=== PATIENT | female | born 1945 | race Caucasian/White ===

== ENCOUNTER → 2018-10-20 | Outpatient (CLI) | payer MEDICARE, OTHER ==
[~2018-10-20] MED LIST: Z.0.NEXIUM40 MG PO
--- NOTE | 2018-10-20 17:16 | Diagnostic Imaging Report ---
Exam: Right elbow Series.-3 views History: Pain Comparison: None Findings: Three radiographic views of the right elbow were obtained. No acute fracture or dislocation. The soft tissues appear unremarkable. No substantial joint effusion. Impression: No acute osseous injury of the right elbow. Signed by: Chloe Blankenship MD on 10/20/2018 5:13 PM
--- NOTE | 2018-10-20 17:19 | Diagnostic Imaging Report ---
Exam: Right Hand Series.-3 views History: Pain Comparison: None Findings: Three radiographic views of the right hand were obtained. No acute fracture or dislocation. The soft tissues appear unremarkable. There are scattered degenerative changes, most notably at the metacarpal phalangeal joint of the thumb where there is joint space narrowing, small osteophyte formation, and mild subluxation. Impression: No acute osseous injury. Scattered degenerative changes, most notably at the first MCP joint. Signed by: Chloe Blankenship MD on 10/20/2018 5:16 PM
== END ==
LOC: RAD 15:45
PROVIDERS: ATTEND Internal Medicine
DX: M25.511 Pain in right shoulder (principal); M25.521 Pain in right elbow; M79.641 Pain in right hand; Z91.81 History of falling

== ENCOUNTER 2018-12-23 11:00 | Outpatient (RCR) | payer MEDICARE, OTHER | END 2019-01-03 | LOC: OT 11:00 | PROVIDERS: ATTEND Specialist | DX: S42.392A Other fracture of shaft of left humerus, initial encounter for closed fracture (principal) | CPT/HCPCS: 97139 ==

== ENCOUNTER → 2020-02-21 | Outpatient (CLI) | payer MEDICARE, OTHER ==
[~2020-02-21] MED LIST changes: +CEFUROXIME500 MG PO
== END ==
LOC: RAD 13:54
PROVIDERS: ATTEND Internal Medicine
DX: J41.0 Simple chronic bronchitis (principal)
CPT/HCPCS: 71046

== ENCOUNTER 2020-02-25 01:11 | Emergency (ER) | payer MEDICARE, OTHER ==
[~2020-02-25] VITALS: Ht 157.5 cm; Wt 71.7 kg
[~2020-02-25 01:11] MED LIST changes: -CEFUROXIME500 MG PO
[2020-02-25] MEDS ORDERED: ASPIRIN 81 MG CHEW TAB PO ONE (01:15)
--- NOTE | 2020-02-25 01:23 | Emergency Department Note ---
History of Present Illnes History of Present Illness History of Present Illness This is a 75 year old female with CP of 3 days duration. Recent loss of sense of smell yesterday. (+) fevers . Historian: Patient, Family Member Arrival Mode: Car Patient Access Specialist Required: No Radiation: Reports non-radiation Severity: moderate Onset quality: sudden Duration (how long): hour(s) Timing of current episode: constant Progression: worsening Chronicity: new Relieving factors: none Exacerbating factors: none Associated symptoms: Reports chest pain, Reports shortness of breath Treatments prior to arrival: none Past Medical/Family History Physician Review I have reviewed the patient's past medical and family history. Any updates have been documented here. Past Medical History Recent Fever: Yes Clinical Suspicion of Infectio: Yes New/Unexplained Change in Ment: No Past Medical History: None Past Surgical History: None Social History Smoking Cessation: Never Smoker Alcohol Use: None Any Illegal Drug Use: No Review of Systems Review of Systems Constitutional: Reports no symptoms EENTM: Reports no symptoms Cardiovascular: Reports chest pain Respiratory: Reports dyspnea Gastrointestinal: Reports no symptoms Genitourinary: Reports no symptoms Musculoskeletal: Reports no symptoms Integumentary: Reports no symptoms Neurological: Reports no symptoms Psychological: Reports no symptoms Endocrine: Reports no symptoms Hematological/Lymphatic: Reports no symptoms Physical Exam Related Data Allergies: Coded Allergies: Penicillins (Verified Allergy, Unknown, 02/21/20) Sulfa (Sulfonamide Antibiotics) (Verified Allergy, Unknown, 02/21/20) codeine (Verified Allergy, Unknown, 02/21/20) Triage Vital Signs Vital Signs Date Time Temp Pulse Resp B/P (MAP) Pulse Ox O2 Delivery O2 Flow Rate FiO2 02/25/20 01:12 98.0 70 20 148/76 100 Room Air Vital signs reviewed: Yes Physical Exam CONSTITUTIONAL Constitutional: Present well-developed, Present well-nourished HENT HENT: Present normocephalic, Present atraumatic, Present oropharynx clear/moist, Present nose normal HENT L/R: Present left ext ear normal, Present right ext ear normal EYES Eyes: Reports PERRL, Reports conjunctivae normal NECK Neck: Present ROM normal PULMONARY Pulmonary: Present effort normal, Present breath sounds normal CARDIOVASCULAR Cardiovascular: Present regular rhythm, Present heart sounds normal, Present capillary refill normal, Present normal rate GASTROINTESTINAL Abdominal: Present soft, Present nontender, Present bowel sounds normal GENITOURINARY Genitourinary: Present exam deferred SKIN Skin: Present warm, Present dry MUSCULOSKELETAL Musculoskeletal: Present ROM normal NEUROLOGICAL Neurological: Present alert, Present oriented x 3, Present no gross motor or sensory deficits PSYCHOLOGICAL Psychological: Present mood/affect normal, Present judgement normal Results Laboratory Lab results reviewed: Yes Laboratory comments Laboratory Tests Test 02/25/20 01:22 02/25/20 01:15 Coronavirus (PCR) Detected (NOTDETECTED) White Blood Count 4.85 x10e3/uL (4.8-10.8) Red Blood Count 4.50 x10e6/uL (3.6-5.1) Hemoglobin 13.4 g/dL (12.0-16.0) Hematocrit 40.8 % (34.2-44.1) Mean Corpuscular Volume 90.7 fL (81-99) Mean Corpuscular Hemoglobin 29.8 pg (28-32) Mean Corpuscular Hemoglobin Concent 32.8 g/dL (31-35) Red Cell Distribution Width 13.1 % (11.7-14.4) Platelet Count 263 x10e3/uL (140-360) Neutrophils (%) (Auto) 39.1 % (38.7-80.0) Lymphocytes (%) (Auto) 48.2 % (18.0-39.1) Monocytes (%) (Auto) 11.1 % (4.4-11.3) Eosinophils (%) (Auto) 0.6 % (0.0-6.0) Basophils (%) (Auto) 0.4 % (0.0-1.0) Neutrophils # (Auto) 1.9 (2.1-6.9) Lymphocytes # (Auto) 2.3 (1.0-3.2) Monocytes # (Auto) 0.5 (0.2-0.8) Eosinophils # (Auto) 0.0 (0.0-0.4) Basophils # (Auto) 0.0 (0.0-0.1) Absolute Immature Granulocyte (auto 0.03 x10e3/uL (0-0.1) D-Dimer Quantitative (PE/DVT) 2.03 ug/mLFEU (0.00-0.45) Sodium Level 139 mmol/L (136-145) Potassium Level 4.1 mmol/L (3.5-5.1) Chloride Level 102 mmol/L (98-107) Carbon Dioxide Level 25 mmol/L (22-29) Anion Gap 16.1 mmol/L (8-16) Blood Urea Nitrogen 13 mg/dL (7-26) Creatinine 0.75 mg/dL (0.57-1.11) Estimat Glomerular Filtration Rate > 60 ML/MIN (60-) BUN/Creatinine Ratio 17 (6-25) Glucose Level 96 mg/dL (74-118) Calcium Level 8.9 mg/dL (8.4-10.2) Total Bilirubin 0.2 mg/dL (0.2-1.2) Aspartate Amino Transf (AST/SGOT) 21 IU/L (5-34) Alanine Aminotransferase (ALT/SGPT) 15 IU/L (0-55) Alkaline Phosphatase 75 IU/L (40-150) Creatine Kinase 66 IU/L (29-168) Creatine Kinase MB 1.70 ng/mL (0-5.0) Troponin I < 0.001 ng/mL (0-0.300) B-Type Natriuretic Peptide 23.3 pg/mL (0-100) Total Protein 6.7 g/dL (6.5-8.1) Albumin 4.0 g/dL (3.5-5.0) Globulin 2.7 g/dL (2.3-3.5) Albumin/Globulin Ratio 1.5 (0.8-2.0) Imaging Imaging results reviewed: Yes Impressions [place] [address] Patient Name: PONCHO THORNTON MR #: [id number] : 1945 Age/Sex: 75/F Req #: [id number] Adm Physician: Ordered by: GLENYS CAMPBELL DO Report #: [id number] Location: ER Room/Bed: Procedure: [id number] CT/CT CHEST W Exam Date: 02/25/20 Exam Time: 020 REPORT STATUS: Signed EXAM: CT PE Chest, Abdomen and Pelvis WITH contrast INDICATION: ^Y ^CP ^[id number] ^0207 COMPARISON: None. TECHNIQUE: Chest, abdomen and pelvis were scanned utilizing a multidetector helical scanner from the lung apex to the pubic symphysis after administration of IV contrast. Coronal and sagittal reformations were obtained. CT chest protocol. Portal venous phase abdomen pelvis. IV CONTRAST: 100 mL of Isovue 370 ORAL CONTRAST: None COMPLICATIONS: None FINDINGS: LUNGS AND AIRWAYS: No pulmonary artery filling defects. Patchy consolidative opacities in the lower lobes. Diffuse groundglass with areas of mosaic attenuation suggestive of air trapping. A lobular septal thickening. No pleural effusion. PLEURA: The pleural spaces are clear. HEART AND MEDIASTINUM: The thyroid gland is normal. No mediastinal, hilar or axillary lymphadenopathy. The heart is normal in size. There is no pericardial effusion. HEPATOBILIARY: Noncirrhotic liver morphology. 1.0 cm simple cyst in the right hepatic lobe. No biliary ductal dilation. GALLBLADDER: There are cholecystectomy clips. SPLEEN: No splenomegaly. PANCREAS: No focal masses or ductal dilatation. ADRENALS: No adrenal nodules KIDNEYS/URETERS: Kidneys enhance symmetrically. Asymmetrically distended right renal pelvis and prominent right ureter without adjacent inflammatory changes. No ureteral calculi identified, but evaluation at the right UVJ is limited due to streak artifact from total right hip arthroplasty. GI TRACT: No abnormal distention, wall thickening, or evidence of bowel obstruction. Appendix is normal. PELVIC ORGANS/BLADDER: Unremarkable. LYMPH NODES: No lymphadenopathy. VESSELS: Unremarkable. PERITONEUM / RETROPERITONEUM: No free air or fluid. BONES: Total right hip arthroplasty.. SOFT TISSUES: Unremarkable. IMPRESSION: 1. No pulmonary emboli. 2. Patchy consolidative opacities in the lower lobes. Diffuse groundglass and interlobular septal thickening with areas of mosaic attenuation suggestive of air trapping. Findings are concerning for an acute infectious/inflammatory process including multifocal atypical/viral pneumonia. Findings are indeterminate for Covid 19. Recommend follow-up chest CT in 3 months. 3. Asymmetric distention of the right renal pelvis and ureter without davis hydronephrosis or associated inflammatory changes. No urinary tract calculi identified. Metallic artifact from the total right hip arthroplasty limits evaluation of the distal ureter at the right UVJ. Recommend comparisons with outside imaging to establish stability. Otherwise consider nonemergent MR urogram with metal reduction protocol to exclude underlying ureteral lesion. 4. Otherwise, no acute abdominopelvic process. Signed by: Pato James MD on 02/25/2020 3:28 AM Dictated By: PATO JAMES MD 7 Transcribed By: SARAH on 02/25/20327 COPY TO: GLENYS CAMPBELL DO~ [place] [address] Patient Name: PONCHO THORNTON MR #: [id number] : 1945 Age/Sex: 75/F Req #: [id number] Adm Physician: Ordered by: GLENYS CAMPBELL DO Report #: [id number] Location: ER Room/Bed: ___ Procedure: [id number] CT/CT ABDOMEN/PELVIS W Exam Date: 02/25/20 Exam Time: 206 REPORT STATUS: Signed EXAM: CT PE Chest, Abdomen and Pelvis WITH contrast INDICATION: ^Y ^CP ^[id number] ^0207 COMPARISON: None. TECHNIQUE: Chest, abdomen and pelvis were scanned utilizing a multidetector helical scanner from the lung apex to the pubic symphysis after administration of IV contrast. Coronal and sagittal reformations were obtained. CT chest protocol. Portal venous phase abdomen pelvis. IV CONTRAST: 100 mL of Isovue 370 ORAL CONTRAST: None COMPLICATIONS: None FINDINGS: LUNGS AND AIRWAYS: No pulmonary artery filling defects. Patchy consolidative opacities in the lower lobes. Diffuse groundglass with areas of mosaic attenuation suggestive of air trapping. A lobular septal thickening. No pleural effusion. PLEURA: The pleural spaces are clear. HEART AND MEDIASTINUM: The thyroid gland is normal. No mediastinal, hilar or axillary lymphadenopathy. The heart is normal in size. There is no pericardial effusion. HEPATOBILIARY: Noncirrhotic liver morphology. 1.0 cm simple cyst in the right hepatic lobe. No biliary ductal dilation. GALLBLADDER: There are cholecystectomy clips. SPLEEN: No splenomegaly. PANCREAS: No focal masses or ductal dilatation. ADRENALS: No adrenal nodules KIDNEYS/URETERS: Kidneys enhance symmetrically. Asymmetrically distended right renal pelvis and prominent right ureter without adjacent inflammatory changes. No ureteral calculi identified, but evaluation at the right UVJ is limited due to streak artifact from total right hip arthroplasty. GI TRACT: No abnormal distention, wall thickening, or evidence of bowel obstruction. Appendix is normal. PELVIC ORGANS/BLADDER: Unremarkable. LYMPH NODES: No lymphadenopathy. VESSELS: Unremarkable. PERITONEUM / RETROPERITONEUM: No free air or fluid. BONES: Total right hip arthroplasty.. SOFT TISSUES: Unremarkable. IMPRESSION: 1. No pulmonary emboli. 2. Patchy consolidative opacities in the lower lobes. Diffuse groundglass and interlobular septal thickening with areas of mosaic attenuation suggestive of air trapping. Findings are concerning for an acute infectious/inflammatory process including multifocal atypical/viral pneumonia. Findings are indeterminate for Covid 19. Recommend follow-up chest CT in 3 months. 3. Asymmetric distention of the right renal pelvis and ureter without davis hydronephrosis or associated inflammatory changes. No urinary tract calculi identified. Metallic artifact from the total right hip arthroplasty limits evaluation of the distal ureter at the right UVJ. Recommend comparisons with outside imaging to establish stability. Otherwise consider nonemergent MR urogram with metal reduction protocol to exclude underlying ureteral lesion. 4. Otherwise, no acute abdominopelvic process. Signed by: Pato James MD on 02/25/2020 3:28 AM Dictated By: PATO JAMES MD 7 Transcribed By: SARAH on 02/25/20327 COPY TO: GLENYS CAMPBELL DO~ Procedures 12 Lead ECG Interpretation ECG Interpretation : ECG: ECG 1 Patient Access Specialist: Interpreted by ED physician Date: Feb 25, 2020 Time: 01:17 Prior ECG tracings: reviewed Rhythm: sinus rhythm Rate: normal BPM: 72 QRS axis: normal ST segments normal: Yes T waves normal: Yes Clinical Impression: normal ECG Assessment & Plan Medical Decision Making MDM Diff Dx : COVID-19 URI, ACS, PE, PTX, PNA Assessment & Plan Final Impression: (1) Upper respiratory tract infection due to COVID-19 virus (2) Chest pain Depart Disposition: TRANS TO OTHER [facility] Home Meds Reported Medications Cefuroxime Axetil (CEFUROXIME) 500 Mg Tablet, 500 MG PO BID 02/25/20 Esomeprazole Mag Trihydrate (Nexium) 40 Mg Capsule.dr, 40 MG PO DAILY 09/03/10 Medications in the ED Aspirin 81 mg PRN ONCE PO ; Start 02/25/20 at 01:15; Stop 02/25/20 at 01:16; Status GLENYS KENDALL DO Feb 25, 2020 01:23
[2020-02-25 01:29] LABS: BASOPHILS % 0.4 % (0.0-1.0); EOSINOPHILS % 0.6 % (0.0-6.0); HEMATOCRIT 40.8 % (34.2-44.1); HEMOGLOBIN 13.4 g/dL (12.0-16.0); LYMPHOCYTES # (AUTO) 2.3 (1.0-3.2); LYMPHOCYTES % 48.2 % (18.0-39.1); MEAN CORPUSCULAR HEMOGLOBIN 29.8 pg (28-32); MEAN CORPUSCULAR HGB CONC 32.8 g/dL (31-35); MEAN CORPUSCULAR VOLUME 90.7 fL (81-99); MONOCYTES # (AUTO) 0.5 (0.2-0.8); MONOCYTES % 11.1 % (4.4-11.3); NEUTROPHILS # (AUTO) 1.9 (2.1-6.9); NEUTROPHILS % 39.1 % (38.7-80.0); PLATELET COUNT 263 x10e3/uL (140-360); RED CELL DISTRIBUTION WIDTH 13.1 % (11.7-14.4)
[2020-02-25 01:49] LABS: ALANINE AMINOTRANSFERASE 15 IU/L (0-55); ALBUMIN/GLOBULIN RATIO 1.5 (0.8-2.0); ALKALINE PHOSPHATASE 75 IU/L (40-150); ANION GAP 16.1 mmol/L (8-16); BLOOD UREA NITROGEN 13 mg/dL (7-26); BUN/CREATININE RATIO 17 (6-25); CALCIUM 8.9 mg/dL (8.4-10.2); CARBON DIOXIDE 25 mmol/L (22-29); CHLORIDE 102 mmol/L (98-107); CREATINE KINASE 66 IU/L (29-168); CREATININE, SERUM 0.75 mg/dL (0.57-1.11); EST GLOMERULAR FILTRATION RATE > 60 ML/MIN (60-); GLUCOSE 96 mg/dL (74-118); POTASSIUM 4.1 mmol/L (3.5-5.1); SODIUM 139 mmol/L (136-145)
[2020-02-25] MEDS ORDERED: CEFUROXIME500 MG PO (03:20)
--- NOTE | 2020-02-25 03:31 | Diagnostic Imaging Report ---
EXAM: CT PE Chest, Abdomen and Pelvis WITH contrast INDICATION: ^Y ^CP ^[id number] ^0207 COMPARISON: None. TECHNIQUE: Chest, abdomen and pelvis were scanned utilizing a multidetector helical scanner from the lung apex to the pubic symphysis after administration of IV contrast. Coronal and sagittal reformations were obtained. CT chest protocol. Portal venous phase abdomen pelvis. IV CONTRAST: 100 mL of Isovue 370 ORAL CONTRAST: None COMPLICATIONS: None FINDINGS: LUNGS AND AIRWAYS: No pulmonary artery filling defects. Patchy consolidative opacities in the lower lobes. Diffuse groundglass with areas of mosaic attenuation suggestive of air trapping. A lobular septal thickening. No pleural effusion. PLEURA: The pleural spaces are clear. HEART AND MEDIASTINUM: The thyroid gland is normal. No mediastinal, hilar or axillary lymphadenopathy. The heart is normal in size. There is no pericardial effusion. HEPATOBILIARY: Noncirrhotic liver morphology. 1.0 cm simple cyst in the right hepatic lobe. No biliary ductal dilation. GALLBLADDER: There are cholecystectomy clips. SPLEEN: No splenomegaly. PANCREAS: No focal masses or ductal dilatation. ADRENALS: No adrenal nodules KIDNEYS/URETERS: Kidneys enhance symmetrically. Asymmetrically distended right renal pelvis and prominent right ureter without adjacent inflammatory changes. No ureteral calculi identified, but evaluation at the right UVJ is limited due to streak artifact from total right hip arthroplasty. GI TRACT: No abnormal distention, wall thickening, or evidence of bowel obstruction. Appendix is normal. PELVIC ORGANS/BLADDER: Unremarkable. LYMPH NODES: No lymphadenopathy. VESSELS: Unremarkable. PERITONEUM / RETROPERITONEUM: No free air or fluid. BONES: Total right hip arthroplasty.. SOFT TISSUES: Unremarkable. IMPRESSION: 1. No pulmonary emboli. 2. Patchy consolidative opacities in the lower lobes. Diffuse groundglass and interlobular septal thickening with areas of mosaic attenuation suggestive of air trapping. Findings are concerning for an acute infectious/inflammatory process including multifocal atypical/viral pneumonia. Findings are indeterminate for Covid 19. Recommend follow-up chest CT in 3 months. 3. Asymmetric distention of the right renal pelvis and ureter without davis hydronephrosis or associated inflammatory changes. No urinary tract calculi identified. Metallic artifact from the total right hip arthroplasty limits evaluation of the distal ureter at the right UVJ. Recommend comparisons with outside imaging to establish stability. Otherwise consider nonemergent MR urogram with metal reduction protocol to exclude underlying ureteral lesion. 4. Otherwise, no acute abdominopelvic process. Signed by: Grant Caputo MD on 02/25/2020 3:28 AM
[2020-02-25 04:14] VITALS: BP 151/69
--- NOTE | 2020-02-25 05:10 | NUR ---
[facility] here to transport patient.
[2020-02-25] MEDS ORDERED: SODIUM CHLORIDE 0.9% 50ML 50 ML ONE (07:23)
[2020-02-25] MEDS ORDERED: IOPAMIDOL 370 MG/ML 200 ML INFUS..BTL INJ ONE (07:24)
--- OUTSIDE RECORDS SUMMARY | 2020-02-25 10:29 | XMS REPORT | Continuity of Care Document ---
Author Author [facility] t Organization [facility] Address [address] [place] [address] Phone Unavailable Care Team Providers Care Project Mgr Name Role Phone MALIHA BROOKE, MD KRAMER PCP Von BROOKE, Ginna Attphys Morgan Culp MD Attphys GLENYS CAMPBELL Attphys Unavailable Emily JETT Attphys Unavailable Payers Payer Name Policy Type Policy Number Effective Date Expiration Date S ann MEDICAREMEDICARE A [id number] 2011-PresentMedicare [id number] 2012 00:00:00 [facility] - MEDICARE MGD CAREAETNA MEDICARE OPEN PLAN [id number] for all [phone] [address], [place] [address]Sjhs Non-Contracted [id number] [facility] Medicare A & B [id number] 2012 00:00:00 [facility] Aena Medicare Supplement Plan [id number] [facility] Problems Condition Name Condition Details Condition Category Status Onset Date Resolution Date Last Treatment Date Treating Clinician Comments Source Pneumonia due to COVID-19 virus Pneumonia due to COVID-19 virus Dis ease Active 2020-02-25 00:00:00 [facility] Upper respiratory tract infection due to severe acute respiratory syndrome coronavirus 2 (SARS-CoV-2) Problem Active [facility] Chest pain Problem Active [facility] Allergies, Adverse Reactions, Alerts Allergy Name Allergy Type Status Severity Reaction(s) Onset Date Inacti ve Date Treating Clinician Comments Source Codeine Propensity to adverse reactions Active 2020-02-25 0 0:00:00 [facility] Penicillins Propensity to adverse reactions Active 2019 00:00:00 [facility] Sulfa (Sulfonamide Antibiotics) Propensity to adverse reactions Activ e 2020-02-25 00:00:00 [facility] Penicillin Allergy to substance Active 2020-02-21 00:00:00 [facility] Sulfa (Sulfonamide Antibiotics) Allergy to substance Active 2020-02-21 00:00:00 [facility] Codeine Allergy to substance Active 2020-02-21 00:00:00 [facility] Social History Social Habit Start Date Stop Date Quantity Comments Source Sex Assigned At [facility] Medications Ordered Medication Name Filled Medication Name Start Date Stop Da te Current Medication? Ordering Clinician Indication Dosage Frequency Signature (SIG) Comments Components Source cefUROXime (CEFTIN) 500 MG tablet 2020-02-25 09:19:19 Yes 500mg Q.5D Take 500 mg by mouth 2 (two) times daily. [facility] esomeprazole (NexIUM) 40 MG capsule 2020-02-25 09:19:19 Yes 40mg QD Take 40 mg by mouth daily. [facility] albuterol HFA (VENTOLIN HFA) 90 mcg/actuation inhaler 2020-02-25 09:19:19 Yes 1{puff} Inhale 1 puff b y mouth via inhaler every 6 (six) hours as needed for Wheezing. [facility] Cefuroxime Axetil (Cefuroxime) 500 Mg TABLET Cefuroxim e Axetil (Cefuroxime) 500 Mg TABLET Yes 500 Twice A Day [facility] Esomeprazole Mag Trihydrate (Nexium) 40 Mg CAPSULE. Esomeprazole Mag Trihydrate (Nexium) 40 Mg CAPSULE.DR Rodarte 40 D ghazala [facility] Vital Signs Vital Name Observation Time Observation Value Comments Source Systolic blood pressure 2020-02-25 06:37:00 146 mm[Hg] [facility] Diastolic blood pressure 2020-02-25 06:37:00 79 mm[Hg] [facility] Heart rate 2020-02-25 06:37:00 83 /min [facility] Body temperature 2020-02-25 06:37:00 36.56 Virgen [facility] Respiratory rate 2020-02-25 06:37:00 20 /min [facility] Body height 2020-02-25 06:37:00 157.5 cm [facility] Body weight 2020-02-25 06:37:00 71.668 kg [facility] BMI 2020-02-25 06:37:00 28.90 kg/m2 [facility] Oxygen saturation in Arterial blood by Pulse oximetry 2019-04 06:37:00 [facility] 2020-02-25 04:14:00 75 /min [facility] Respiratory rate 2020-02-25 04:14:00 18 /min [facility] BP Systolic 2020-02-25 04:14:00 151 mm[Hg] [facility] BP Diastolic 2020-02-25 04:14:00 69 mm[Hg] [facility] Oxygen saturation by Pulse oximetry 2020-02-25 04:14:00 100 /min [facility] Weight 2020-02-25 01:12:00 158 [lb_av] [facility] BMI (Body Mass Index) 2020-02-25 01:12:00 28.9 kg/m2 [facility] Procedures Procedure Date / Time Performed Performing Clinician [facility] e Computed tomography of chest with contrast 2020-02-25 00:00:00 [facility] Computed tomography of abdomen and pelvis with contrast 00:00:00 [facility] X-ray of chest, two views 2020-02-21 00:00:00 I [facility] Plan of Care Planned Activity Planned Date Details Comments Source Encounters Start Date/Time End Date/Time Encounter Type Admission Type [facility] Care Department Encounter ID Source 2020-02-25 01:47:00 2020-02-25 05:37:00 Departed Emergency Room 1 GLENYS CAMPBELL [facility] [id number] [facility] 2020-02-21 13:54:00 2020-02-21 13:54:00 Registered Clinic 3 [facility] [id number] [facility] 2018-12-23 11:00:00 2019-01-03 23:59:00 Discharged [facility] [id number] [facility] 2018-10-20 15:45:00 2018-10-20 15:45:00 Registered Clinic 3 [facility] [id number] [facility] Results Test Description Test Time Test Comments Results Result Comments Source CT CHEST W 2020-02-25 02:57:00 [facility] 1945 Sex: F [place] [address] Patient Name: PONCHO VELASQUEZ MR #: [id number] : 1945 Age/Sex: 75/F Req #: [id number] Adm Physician: Ordered by: GLENYS CAMPBELL DO Report #: [id number] Location: ER Room/Bed: Procedure: [id number] CT/CT CHEST W Exam Date: 02/25/20 Exam Time: 0207 REPORT STATUS: Signed EXAM: CT PE Chest, Abdomen and Pelvis WITH contrast INDICATION: Y CP [id number] COMPARISON: None. TECHNIQUE: Chest, abdomen and pelvis were scanned utilizing a multidetector helical scanner from the lung apex to the pubic symphysis after administration of IV contrast. Coronal and sagittal reformations were obtained. CT chest protocol. Portal venous phase abdomen pelvis. IV CONTRAST: 100 mL of Isovue 370 ORAL CONTRAST: None COMPLICATIONS: None FINDINGS: LUNGS AND AIRWAYS: No pulmonary artery filling defects. Patchy consolidative opacities in the lower lobes. Diffuse groundglass with areas of mosaic attenuation suggestive of air trapping. A lobular septal thickening. No pleural effusion. PLEURA: The pleural spaces are clear. HEART AND MEDIASTINUM: The thyroid gland is normal. No mediastinal, hilar or axillary lymphadenopathy. The heart is normal in size. There is no pericardial effusion. HEPATOBILIARY: Noncirrhotic liver morphology. 1.0 cm simple cyst in the right hepatic lobe. No biliary ductal dilation. GALLBLADDER: There are cholecystectomy clips. SPLEEN: No splenomegaly. PANCREAS: No focal masses or ductal dilatation. ADRENALS: No adrenal nodules KIDNEYS/URETERS: Kidneys enhance symmetrically. Asymmetrically distended right renal pelvis and prominent right ureter without adjacent inflammatory changes. No ureteral calculi identified, but evaluation at the right UVJ is limited due to streak artifact from total right hip arthroplasty. GI TRACT: No abnormal distention, wall thickening, or evidence of bowel obstruction. Appendix is normal. PELVIC ORGANS/BLADDER: Unremarkable. LYMPH NODES: No lymphadenopathy. VESSELS: Unremarkable. PERITONEUM / RETROPERITONEUM: No free air or fluid. BONES: Total right hip arthroplasty.. SOFT TISSUES: Unremarkable. IMPRESSION: 1. No pulmonary emboli. 2. Patchy consolidative opacities in the lower lobes. Diffuse groundglass and interlobular septal thickening with areas of mosaic attenuation suggestive of air trapping. Findings are concerning for an acute infectious/inflammatory process including multifocal atypical/viral pneumonia. Findings are indeterminate for Covid 19. Recommend follow-up chest CT in 3 months. 3. Asymmetric distention of the right renal pelvis and ureter without davis hydronephrosis or associated inflammatory changes. No urinary tract calculi identified. Metallic artifact from the total right hip arthroplasty limits evaluation of the distal ureter at the right UVJ. Recommend comparisons with outside imaging to establish stability. Otherwise consider nonemergent MR urogram with metal reduction protocol to exclude underlying ureteral lesion. 4. Otherwise, no acute abdominopelvic process. Signed by: Pato James MD on 02/25/2020 3:28 AM Dictated By: PATO JAMES MD 7 Transcribed By: SARAH on 02/25/20327 COPY TO: GLENYS CAMPBELL DO CT ABDOMEN/PELVIS W 2020-02-25 02:57:00 [facility] : 1945 Sex: F [facility] [address] [place] [address] Patient Name: PONCHO VELASQUEZ MR #: [id number] : 1945 Age/Sex: 75/F Req #: [id number] Adm Physician: Ordered by: GLENYS CAMPBELL DO Report #: [id number] Location: ER Room/Bed: Procedure: [id number] CT/CT ABDOMEN/PELVIS W Exam Date: 02/25/20 Exam Time: 0207 REPORT STATUS: Signed EXAM: CT PE Chest, Abdomen and Pelvis WITH contrast INDICATION: Y CP [id number] COMPARISON: None. TECHNIQUE: Chest, abdomen and pelvis were scanned utilizing a multidetector helical scanner from the lung apex to the pubic symphysis after administration of IV contrast. Coronal and sagittal reformations were obtained. CT chest protocol. Portal venous phase abdomen pelvis. IV CONTRAST: 100 mL of Isovue 370 ORAL CONTRAST: None COMPLICATIONS: None FINDINGS: LUNGS AND AIRWAYS: No pulmonary artery filling defects. Patchy consolidative opacities in the lower lobes. Diffuse groundglass with areas of mosaic attenuation suggestive of air trapping. A lobular septal thickening. No pleural effusion. PLEURA: The pleural spaces are clear. HEART AND MEDIASTINUM: The thyroid gland is normal. No mediastinal, hilar or axillary lymphadenopathy. The heart is normal in size. There is no pericardial effusion. HEPATOBILIARY: Noncirrhotic liver morphology. 1.0 cm simple cyst in the right hepatic lobe. No biliary ductal dilation. GALLBLADDER: There are cholecystectomy clips. SPLEEN: No splenomegaly. PANCREAS: No focal masses or ductal dilatation. ADRENALS: No adrenal nodules KIDNEYS/URETERS: Kidneys enhance symmetrically. Asymmetrically distended right renal pelvis and prominent right ureter without adjacent inflammatory changes. No ureteral calculi identified, but evaluation at the right UVJ is limited due to streak artifact from total right hip arthroplasty. GI TRACT: No abnormal distention, wall thickening, or evidence of bowel obstruction. Appendix is normal. PELVIC ORGANS/BLADDER: Unremarkable. LYMPH NODES: No lymphadenopathy. VESSELS: Unremarkable. PERITONEUM / RETROPERITONEUM: No free air or fluid. BONES: Total right hip arthroplasty.. SOFT TISSUES: Unremarkable. IMPRESSION: 1. No pulmonary emboli. 2. Patchy consolidative opacities in the lower lobes. Diffuse groundglass and interlobular septal thickening with areas of mosaic attenuation suggestive of air trapping. Findings are concerning for an acute infectious/inflammatory process including multifocal atypical/viral pneumonia. Findings are indeterminate for Covid 19. Recommend follow-up chest CT in 3 months. 3. Asymmetric distention of the right renal pelvis and ureter without davis hydronephrosis or associated inflammatory changes. No urinary tract calculi identified. Metallic artifact from the total right hip arthroplasty limits evaluation of the distal ureter at the right UVJ. Recommend comparisons with outside imaging to establish stability. Otherwise consider nonemergent MR urogram with metal reduction protocol to exclude underlying ureteral lesion. 4. Otherwise, no acute abdominopelvic process. Signed by: Pato James MD on 02/25/2020 3:28 AM Dictated By: PATO JAMES MD 7 Transcribed By: SARAH on 02/25/20327 COPY TO: GLENYS CAMPBELL DO Fluoroscopic procedure less than one hour duration 2020-02-06 1 01:22:00 Test Item Coronavirus (PCR) (test code = Coronavirus (PCR)) DETECTED NOTD ETECTED SARS-COV2/RT-PCR CEPHEIDResults are for the detection of SARS-COV-2 RNA. The SUMMER S-COV-2 RNA is generally detectable in nasopharyngeal swab specimens during the acute phase of infection. Positive results are indicitive of active infection wi th SARS-COV-2; clinical correlation with patient history and other diagnostic in formation is necessary to determine patient infection status. Positive results d o not rule out bacterial infection or co-infection with other viruses. The agent detected may not be the definite cause of the disease.The limit of detection fo r this assay is 250 copies/mLThe SARS-CoV-2 test is a rapid, real-time RT-PCR te st intended for the qualitative detection of nucleic acid from SARS-CoV-2 in estefany opharyngeal swab specimen collected from individuals suspected of COVID-19 by eir healthcare provider. This test has not been Food and Drug Administration (FD A) cleared or approved and has been authorized by FDA under an Emergency Use Aut horization (EUA). This EUA will be effective until the declaration that circumst ances exist justifying the authorization of the emergency use of in vitro diagno stic test for detection and or diagnosis of COVID-19 is terminated under section 564(b) of the Act, or the the EUA is revoked under 564(g) of the ACT.[facility] automated count (number/volume) 2020-02-25 01:15:00* Test Item Value Reference Range Interpretation Comments White Blood Count (test code = 6690-2) 4.85 10*3/uL 4.8-10.8 [facility] erythrocytes automated count (number/volume)2020-02-25 01:15:00* Test Item Value Reference Range Interpretation Comments Red Blood Count (test code = 789-8) 4.50 10*6/mL 3.6-5.1 [facility] hemoglobin measurement (moles/volume)2020-02-25 01:15:00* Test Item Value Reference Range Interpretation Comments Hemoglobin (test code = 97650-2) 13.4 g/dL 12.0-16.0 [facility]roe[facility]ated blood hematocrit (volume fraction)2020-02-25 01:15:00* Test Item Value Reference Range Interpretation Comments Hematocrit (test code = 4544-3) 40.8 % 34.2-44.1 [facility]ated erythrocyte mean corpuscular [id number] 01:15:00* Test Item Value Reference Range Interpretation Comments Mean Corpuscular Volume (test code = 787-2) 90.7 81-99 [facility]roe[facility]ated erythrocyte mean corpuscular hemoglobin (mass per erythrocyte)2020-02-25 01:15:00* Test Item Value Reference Range Interpretation Comments Mean Corpuscular Hemoglobin (test code = 785-6) 29.8 pg 28-32 [facility]roeAutomated erythrocyte mean corpuscular hemoglobin concentration measurement (mass/volume)2020-02-25 01:15:00* Test Item Value Reference Range Interpretation Comments Mean Corpuscular Hemoglobin Concent (test code = 786-4) 32.8 g/dL 31-35 [facility]roeRDW [id number]-[id number] 01:15:00* Test Item Value Reference Range Interpretation Comments Red Cell Distribution Width (test code = 90628-7) 13.1 % 11.7 -14.4 [facility]roeAutomated blood platelet count (count/volume)2020-02-25 01:15:00* Test Item Value Reference Range Interpretation Comments Platelet Count (test code = 777-3) 263 10*3/uL 140-360 [facility]roeAutomated blood segmented neutrophil count as percentage of total ddahlkcqri2269-85-11 01:15:00* Test Item Value Reference Range Interpretation Comments Neutrophils (%) (Auto) (test code = 10554-7) 39.1 % 38.7-80.0 [facility]roeAutomated blood lymphocyte count as percentage ot total [id number] 01:15:00* Test Item Value Reference Range Interpretation Comments Lymphocytes (%) (Auto) (test code = 736-9) 48.2 % 18.0-39.1 [facility]roe[facility]ated blood monocyte count as percentage of total mgnplispod1042-40-47 01:15:00* Test Item Value Reference Range Interpretation Comments Monocytes (%) (Auto) (test code = 5905-5) 11.1 % 4.4-11.3 [facility]roe[facility]ated blood eosinophil count as percentage of total ddantuqpam0881-65-91 01:15:00* Test Item Value Reference Range Interpretation Comments Eosinophils (%) (Auto) (test code = 713-8) 0.6 % 0.0-6.0 [facility]ated blood basophil count as percentage of total phtvskgixl1112-02-03 01:15:00* Test Item Value Reference Range Interpretation Comments Basophils (%) (Auto) (test code = 706-2) 0.4 % 0.0-1.0 [facility]roeFluoroscopic procedure less than one hour pselcsgf9189-61-31 01:15:00* Test Item Value Reference Range Interpretation Comments IM GRANULOCYTES % (test code = IM GRANULOCYTES %) 0.6 % 0.0- 1.0 [facility]roeAutomated blood neutrophil count 2020-02-25 01:15:00* Test Item Value Reference Range Interpretation Comments Neutrophils # (Auto) (test code = 751-8) 1.9 2.1-6.9 [facility] lymphocytes count (number/volume) 2020-02-25 01:15:00* Test Item Value Reference Range Interpretation Comments Lymphocytes # (Auto) (test code = 57283-2) 2.3 1.0-3.2 [facility]Blood monocytes automated count (number/volume)2020-02-25 01:15:00* Test Item Value Reference Range Interpretation Comments Monocytes # (Auto) (test code = 742-7) 0.5 0.2-0.8 [facility]roeAutomated blood eosinophil count 2020-02-25 01:15:00* Test Item Value Reference Range Interpretation Comments Eosinophils # (Auto) (test code = 711-2) 0.0 0.0-0.4 [facility]roeAutomated blood basophil count (count/volume)2020-02-25 01:15:00* Test Item Value Reference Range Interpretation Comments Basophils # (Auto) (test code = 704-7) 0.0 0.0-0.1 [facility]roeFluoroscopic procedure less than one hour bcbkrnik1945-93-50 01:15:00* Test Item Value Reference Range Interpretation Comments Absolute Immature Granulocyte (auto (shelly t code = Absolute Immature Granulocyte (auto) 0.03 10*3/uL 0-0.1 [facility] ConroeFibrin D-dimer DDU measurement in platelet poor plasma (mass/volume)2020-02-25 01:15:00* Test Item Value Reference Range Interpretation Comments D-Dimer Quantitative (PE/DVT) (test code = 77751-5) 2.03 ug/mL{FEU} 0.00-0.45 As with all in vitro diagnostic tests, the test results should be interpreted by the physician in conjunction with clinical findings and other test results.Test results are reported in NEW D-dimer units(ug/mLFEU).[facility] or plasma sodium measurement (moles/volume)2020-02-25 01:15:00* Test Item Value Reference Range Interpretation Comments Sodium Level (test code = 2951-2) 139 mmol/L 136-145 [facility] or plasma potassium measurement (moles/volume)2020-02-25 01:15:00* Test Item Value Reference Range Interpretation Comments Potassium Level (test code = 2823-3) 4.1 mmol/L 3.5-5.1 [facility] or plasma chloride measurement (moles/volume)2020-02-25 01:15:00* Test Item Value Reference Range Interpretation Comments Chloride Level (test code = 2075-0) 102 mmol/L 98-107 [facility] or plasma carbon dioxide, total measurement (moles/volume)2020-02-25 01:15:00* Test Item Value Reference Range Interpretation Comments Carbon Dioxide Level (test code = 2028-9) 25 mmol/L - [facility] Clinicerum or plasma anion hfw7432-50-19 01:15:00* Test Item Value Reference Range Interpretation Comments Anion Gap (test code = 21021-6) 16.1 mmol/L 8-16 [facility] or plasma urea nitrogen measurement (mass/volume)2020-02-25 01:15:00* Test Item Value Reference Range Interpretation Comments Blood Urea Nitrogen (test code = 3094-0) 13 mg/dL 7- [facility] or plasma creatinine measurement (mass/volume)2020-02-25 01:15:00* Test Item Value Reference Range Interpretation Comments Creatinine (test code = 2160-0) 0.75 mg/dL 0.57-1.11 [facility] or plasma urea nitrogen/creatinine mass [id number] 01:15:00* Test Item Value Reference Range Interpretation Comments BUN/Creatinine Ratio (test code = 3097-3) 17 6-25 [facility]roeEstimated glomerular filtration rate (GFR) beunaopsyapda8412-37-37 01:15:00* Test Item Value Reference Range Interpretation Comments Estimat Glomerular Filtration Rate (test code = 838230435) > 60 mL/ min >60 Ranges were taken from the National Kidney Disease Education Program and the [facility] Foundation literature.Reference ranges:60 or greater: Rsckgk40-51 ( for 3 consecutive months): Chronic kidney disease 15 or less: Kidney failureHCA Houston Healthcare ConroeGlucose kbinecesduj5136-29-47 01:15:00* Test Item Value Reference Range Interpretation Comments Glucose Level (test code = RUS6482) 96 mg/dL 74-118 [facility] Clinic[facility]um or plasma calcium measurement (mass/volume)2020-02-25 01:15:00* Test Item Value Reference Range Interpretation Comments Calcium Level (test code = 51676-8) 8.9 mg/dL 8.4-10.2 [facility] Clinic[facility] or plasma total bilirubin measurement (mass/volume)2020-02-25 01:15:00* Test Item Value Reference Range Interpretation Comments Total Bilirubin (test code = 1975-2) 0.2 mg/dL 0.2-1.2 [facility]roeFluoroscopic procedure less than one hour llvjxbxm2995-95-45 01:15:00* Test Item Value Reference Range Interpretation Comments Aspartate Amino Transf (AST/SGOT) (test code = Aspartate Amino Transf (AST/SGOT)) 21 [IU]/L 5-34 [facility] Clinicerum or plasma alanine aminotransferase measurement (enzymatic activity/volume)2020-02-25 01:15:00* Test Item Value Reference Range Interpretation Comments Alanine Aminotransferase (ALT/SGPT) (test code = 1742-6) 15 [IU]/L 0-55 [facility] Clinic[facility] or plasma protein measurement (mass/volume)2020-02-25 01:15:00* Test Item Value Reference Range Interpretation Comments Total Protein (test code = 2885-2) 6.7 g/dL 6.5-8.1 [facility] Clinic[facility] or plasma albumin measurement (mass/volume)2020-02-25 01:15:00* Test Item Value Reference Range Interpretation Comments Albumin (test code = 1751-7) 4.0 g/dL 3.5-5.0 [facility]roePlasma globulin measurement (mass/volume) 2020-02-25 01:15:00* Test Item Value Reference Range Interpretation Comments Globulin (test code = 74864-2) 2.7 g/dL 2.3-3.5 [facility] Clinic[facility] or plasma albumin/globulin mass bhoft8345-81-95 01:15:00* Test Item Value Reference Range Interpretation Comments Albumin/Globulin Ratio (test code = 1759-0) 1.5 0.8-2.0 [facility] or plasma alkaline phosphatase measurement (enzymatic activity/volume)2020-02-25 01:15:00* Test Item Value Reference Range Interpretation Comments Alkaline Phosphatase (test code = 6768-6) 75 [IU]/L 40-150 [facility]roeBNP Mvq-uSaa9266-18-21 01:15:00* Test Item Value Reference Range Interpretation Comments B-Type Natriuretic Peptide (test code = 28656-4) 23.3 pg/mL 0-100 [facility] or plasma creatine kinase measurement (enzymatic activity/volume)2020-02-25 01:15:00* Test Item Value Reference Range Interpretation Comments Creatine Kinase (test code = 2157-6) 66 [IU]/L 29-168 [facility] Clinic[facility]um or plasma creatine kinase MB measurement (mass/volume)2020-02-25 01:15:00* Test Item Value Reference Range Interpretation Comments Creatine Kinase MB (test code = 45652-2) 1.70 ng/mL 0-5.0 [facility]roeTroponin I measurement by highly sensitive enzyme ozagsqyvljs2945-22-30 01:15:00* Test Item Value Reference Range Interpretation Comments Troponin I (test code = 13157-2) < 0.001 ng/mL 0-0.300 [facility] [id number] 14:37:00 [facility] A : 1945 Sex: F [facility] [address] [place] [id number] Patient Name: PONCHO VELASQUEZ MR #: [id number] : 1945 Age/Sex: 75/F Req #: [id number] Adm Physician: Yasmeen mesa by: WILLIAMS JETT MD Report #: [id number] Locat ion: RAD Room/Bed: Procedure: [id number] DX/CHEST 2 VIEWS Exam Date: 02/21/20 Exam Time: 1416 REPORT STATUS: Signed EXAM: CHEST 2 VIEWS DATE: 02/21/2020 2:16 PM INDICATION: Chronic bronchitis COMPARISON: None FINDINGS: The trachea is midline. There is minimal right basilar opacity suggestive of atel ectasis. The lungs are symmetrically expanded without evidence for large focal consolidation, pneumothorax, or significant pleural effusion. The cardiome diastinal silhouette and pulmonary vasculature are within normal limits. No ac madelin osseous abnormality is identified. The surrounding soft tissues are unrema rkable. IMPRESSION: Minimal right basilar opacity suggestive of ate lectasis. Otherwise, no acute cardiopulmonary process identified. Signed by: Dr. Demetri Wilkins MD on 02/21/2020 2:38 PM Dictated By: DEMETRI WILKINS MD 37 Transcribed By: SARAH on 02/21/201437 COPY TO: WILLIAMS JETT MD HAND 3+ VIEWS [id number] 17:13:00 [facility] [address] [place], [place] [address] Patient Name: PONCHO VELASQUEZ MR #: [id number] : 1945 Age/Sex: 73/F Req #: [id number] Adm Physician: Ordered by: WILLIAMS JETT MD Report #: [id number] Location: RAD Room/Bed: Procedure: [id number] DX/HA D 3+ VIEWS RIGHT Exam Date: 10/20/18 Exam Time: 1610 REPORT STATUS: Signed Exam: Right Hand Series.-3 views History: Pain Comparison: None Findin gs: Three radiographic views of the right hand were obtained. No acute fr acture or dislocation. The soft tissues appear unremarkable. There are scatter ed degenerative changes, most notably at the metacarpal phalangeal joint of th e thumb where there is joint space narrowing, small osteophyte formation, and mild subluxation. Impression: No acute osseous injury. Scattered d egenerative changes, most notably at the first MCP joint. Signed by: Enma Self MD on 10/20/2018 5:16 PM Dictated By: MILAGRO SELF MD [id number] Transcribed By: SARAH on 10/20/18 1 716 COPY TO: WILLIAMS JETT MD LINDA RIGHT [id number] 17:12:00 [facility] [address] [place], [place] [address] Patient Name: PONCHO VELASQUEZ MR #: [id number] : 1945 Age/Sex: 73/F Req #: [id number] Adm Physician: Ordered by: WILLIAMS JETT MD Report #: [id number] Location: RAD Room/Bed: Procedure: [id number] DX/ELB OW RIGHT COMPLETE Exam Date: 10/20/18 Exam Time: 161 0 REPORT STATUS: Signed Exam: Right elbow Series.-3 views History: Pain Comparison: None Find ings: Three radiographic views of the right elbow were obtained. No acute fracture or dislocation. The soft tissues appear unremarkable. No substantial joint effusion. Impression: No acute osseous injury of the right elbow . Signed by: Milagro Self MD on 10/20/2018 5:13 PM Dictated By: ENMA SELF MD [id number] Transcribed B y: SARAH on 10/20/181712 COPY TO: WILLIAMS JETT MD
== END 2020-02-25 05:37 | disposition other institution (70) ==
LOC: ER 01:47
DX: U07.1 COVID-19 (principal); R07.9 Chest pain, unspecified; R06.02 Shortness of breath
CPT/HCPCS: 36415; 71260; 74177; 80053; 82550; 82553; 83880; 84484; 85025; 85379; 93005; 99284; Q9967; U0002

== ENCOUNTER → 2023-12-17 | Day surgery (SDC) | payer MEDICARE, OTHER ==
[2023-12-11 11:09] LABS: BASOPHILS % 0.4 % (0.0-1.0); EOSINOPHILS # (AUTO) 0.1 (0.0-0.4); EOSINOPHILS % 0.7 % (0.0-6.0); HEMATOCRIT 41.8 % (34.2-44.1); HEMOGLOBIN 13.3 g/dL (12.0-16.0); LYMPHOCYTES # (AUTO) 1.6 (1.0-3.2); LYMPHOCYTES % 23.4 % (18.0-39.1); MEAN CORPUSCULAR HEMOGLOBIN 30.8 pg (28-32); MEAN CORPUSCULAR HGB CONC 31.8 g/dL (31-35); MEAN CORPUSCULAR VOLUME 96.8 fL (81-99); MONOCYTES # (AUTO) 0.6 (0.2-0.8); NEUTROPHILS # (AUTO) 4.4 (2.1-6.9); NEUTROPHILS % 66.2 % (38.7-80.0); PLATELET COUNT 251 x10e3/uL (140-360); RED BLOOD COUNT 4.32 x10e6/uL (3.6-5.1); RED CELL DISTRIBUTION WIDTH 13.1 % (11.7-14.4); WHITE BLOOD COUNT 6.67 x10e3/uL (4.8-10.8)
[~2023-12-17] MED LIST changes: +ACUVAIL 0.45%1 EACH OP; +CEFUROXIME500 MG PO; +LACTATED RINGER'S 1,000 ML ONE; +LIDOCAINE HCL 2% LOCAL INJ 5 ML SDV VIAL INJ ONE; +PREDNISOLONE ACE5 M1 OP; +PROPOFOL IV EMULSION 10 MG/ML 20 ML VIAL ONE
[2023-12-17 13:51] VITALS: TEMP 97.5
[2023-12-17 14:20] VITALS: BP 145/78; PULSE 76; RESP 16; O2SAT 99
== END | disposition home or self-care (01) ==
LOC: OR 10:23
PROVIDERS: ATTEND Internal Medicine Gastroenterology
DX: R19.5 Other fecal abnormalities (principal); D12.0 Benign neoplasm of cecum; D12.2 Benign neoplasm of ascending colon; D12.3 Benign neoplasm of transverse colon; K64.8 Other hemorrhoids; K21.9 Gastro-esophageal reflux disease without esophagitis; Z71.3 Dietary counseling and surveillance; M81.0 Age-related osteoporosis without current pathological fracture; Z71.89 Other specified counseling; R03.0 Elevated blood-pressure reading, without diagnosis of hypertension; Z88.6 Allergy status to analgesic agent; Z88.0 Allergy status to penicillin; Z88.2 Allergy status to sulfonamides; Z01.810 Encounter for preprocedural cardiovascular examination; Z01.812 Encounter for preprocedural laboratory examination
CPT/HCPCS: 36415; 45385; 85025; 88305; 93005; J2001; J2704; J7121; 45384